=== PATIENT | male | born 1960 | race Caucasian/White ===

== ENCOUNTER 2016-05-13 09:55 | Emergency (ER) | payer MEDICARE, OTHER ==
[~2016-05-13] VITALS: Ht 177.8 cm; Wt 85.0 kg
[~2016-05-13 09:55] MED LIST: MORP20SO PO
[2016-05-13 09:56] VITALS: BP 151/75; PULSE 75; RESP 14; TEMP 98.8; O2SAT 97
[2016-05-13] MEDS ORDERED: SENN8.6T5 PO (10:12)
[2016-05-13] MEDS ORDERED: GABA300C5 PO (10:12)
[2016-05-13] MEDS ORDERED: MORP1TAB25 PO (10:12)
[2016-05-13 10:14] VITALS: BP 147/77; PULSE 80; RESP 22; O2SAT 96
[2016-05-13 11:02] LABS: BASOPHIL # 0.1 TH/MM3 (0-0.2); BASOPHIL % 0.6 % (0.0-2.0); EOSINOPHIL # 0.1 TH/MM3 (0-0.4); EOSINOPHIL % 1.4 % (0.0-4.0); HEMATOCRIT 38.5 % (39.0-51.0); HEMO FLAGS DIFF FINAL; LYMPH % 8.1 % (9.0-44.0); LYMPHOCYTE # 0.7 TH/MM3 (1.0-4.8); MEAN CELL VOLUME 83.9 FL (80.0-100.0); MEAN CORPUSCULAR HEMOGLOBIN 28.4 PG (27.0-34.0); MEAN CORPUSCULAR HGB CONC 33.8 % (32.0-36.0); MONO % 20.7 % (0.0-8.0); NEUT % 69.2 % (16.0-70.0); PLATELET COUNT 220 TH/MM3 (150-450); RED CELL DISTRIBUTION WIDTH 19.1 % (11.6-17.2); WHITE BLOOD COUNT 8.7 TH/MM3 (4.0-11.0)
[2016-05-13 11:24] LABS: ALKALINE PHOSPHATASE 75 U/L (45-117); TOTAL BILIRUBIN ADULT 0.4 MG/DL (0.2-1.0)
[2016-05-13 11:26] LABS: ALT (GPT) 31 U/L (12-78); ANION GAP 7 MEQ/L (5-15); AST (GOT) 54 U/L (15-37); BICARBONATE 29.3 MEQ/L (21.0-32.0); BLOOD UREA NITROGEN 9 MG/DL (7-18); CHLORIDE 98 MEQ/L (98-107); GLOMERULAR FILTRATION RATE 130 ML/MIN (>89); POTASSIUM 4.2 MEQ/L (3.5-5.1); SODIUM (NA) 134 MEQ/L (136-145)
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
--- NOTE | 2016-05-13 12:11 | RADRPT ---
EXAM DATE/TIME: 05/13/2016 11:10 [facility] COMPARISON: No previous studies available for comparison. INDICATIONS : Left foot swelling and redness. MEDICAL HISTORY : None. SURGICAL HISTORY : None. ENCOUNTER: Initial ACUITY: 1 week PAIN SCORE: 9/10 LOCATION: Left foot FINDINGS: Three view examination of the left foot demonstrates no diffuse soft tissue swelling. Osseous structu res are intact no acute fracture. Well-corticated ossific fragment is identified dorsal to the talar head. Small calcaneal spur at the Achilles attachment. CONCLUSION: 1. Diffuse soft tissue swelling. 2. Well-corticated ossification dorsal to the talar head may represent an accessory ossification or o ld avulsion. No acute fracture. 3. Small calcaneal spur. Wesley Willis MD on May 13, 2016 at 12:06 Board Certified Radiologist. This report was verified electronically.
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
[2016-05-13] MEDS ORDERED: [UNRECOGNIZED DRUG - OTHER] TOP (12:29)
== END 2016-05-13 13:17 | disposition home or self-care (01) ==
LOC: NEPC 09:55
DX: R60.0 Localized edema (principal); I87.8 Other specified disorders of veins; J44.9 Chronic obstructive pulmonary disease, unspecified; F17.210 Nicotine dependence, cigarettes, uncomplicated; V18.4XXA Pedal cycle driver injured in noncollision transport accident in traffic accident, initial encounter; Y93.55 Activity, bike riding; Y92.9 Unspecified place or not applicable
CPT/HCPCS: 72050; 73630; 80053; 83880; 85025; 99283

== ENCOUNTER 2016-06-29 07:50 | Inpatient (IN) | payer OTHER, MEDICARE ==
[~2016-06-29] VITALS: Ht 177.8 cm; Wt 83.5 kg
[~2016-06-29 07:50] MED LIST changes: +GABA300C5 PO; +MORP1TAB25 PO; -MORP20SO PO; +SENN8.6T5 PO; +[UNRECOGNIZED DRUG - OTHER] TOP
[2016-06-29 07:54] VITALS: BP 146/91; PULSE 86; RESP 14; TEMP 98.2; O2SAT 97
[2016-06-29 08:00] VITALS: O2SAT 97
[2016-06-29] MEDS ORDERED: SODIUM CHLORIDE 0.9% FLUSH 5 ML FLUSH IVF PRN (08:15)
[2016-06-29] MEDS ORDERED: ONDANSETRON HCL 4 MG/2 ML VIAL IV PUSH ONE (08:30)
[2016-06-29] MEDS ORDERED: NICOTINE 21 MG/24 HR PATCH TD ONE (08:30)
[2016-06-29] MEDS ORDERED: ACETAMINOPHEN 500 MG CPLT PO ONE (08:30)
--- NOTE | 2016-06-29 08:48 | PD ---
HPI Chief Complaint: Psychiatric Symptoms Time Seen by Provider: 07:55 Travel History International Travel<30 days: No Contact w/Intl Traveler<30days: No Traveled to known affect area: No History of Present Illness HPI Patient is a 55-year-old male who presents emergency Department under Ramirez act. Per Ramirez act he called his daughter and stated that he had consumed a half a gallon of bleach in an attempt to kill himself. Officers arrived and observed half empty gallon jug of bleach sitting on the desk where he was sitting. Dinner last with 2 ounces of clear liquid that smelled of bleach sitting next to him. He picked up a glass and attempted to drink it quoting "cheers". Patient states that he doesn't feel well here, slightly nauseous but denies other complaints or requests a nicotine patch and/or to go outside to smoke. Patient denies any of the above.denies any depression, suicidal ideation or homicidal ideation however Patient making jokes about how the police took his guns and denies when he "has a job to do". PFSH Past Medical History Cardiac Catheterization: Yes COPD: Yes Cerebrovascular Accident: No Diabetes: No Diminished Hearing: No Respiratory: Yes (COPD) Myocardial Infarction: No Seizures: Yes Thyroid Disease: Yes Social History Alcohol Use: Yes (1 case per week) Tobacco Use: Yes (1 PACK/DAY) Substance Use: No Allergies-Medications (Allergen,Severity, Reaction): Coded Allergies: Darvocet-N 100 (Verified Allergy, Severe, Hallucinations, 05/13/16) Reported Meds & Prescriptions Reported Meds & Active Scripts Active A-4 High Compression Mens (Elastic Bandages & Supports) 1 Mis Mis Pack TOP Reported Senna (Sennosides) 8.6 Mg Tab 8.6 Mg PO BID Morphine ER (Morphine Sulfate) 30 Mg Tab 30 Mg PO TID Gabapentin 300 Mg Cap 300 Mg PO TID Review of Systems ROS Limitations: Poor Historian Except as stated in HPI: all other systems reviewed are Neg Physical Exam Narrative GENERAL: Well-appearing middle-aged male in no acute distress SKIN: Warm and dry. HEAD: Normocephalic. EYES: Pupils equal and round. No scleral icterus. No injection or drainage. ENT: No nasal bleeding or discharge. Mucous membranes pink and moist. Posterior pharynx is clear. NECK: Supple without stridor CARDIOVASCULAR: Regular rate and rhythm. No murmur appreciated. RESPIRATORY: No accessory muscle use. Clear to auscultation. Breath sounds equal bilaterally. GASTROINTESTINAL: Abdomen soft, non-tender, nondistended. MUSCULOSKELETAL: Moves all extremity's normally NEUROLOGICAL: Awake and alert to self, knows he is in a hospital but does not know which one. Oriented to year but not date. No obvious cranial nerve deficits. Motor grossly within normal limits. Normal speech. PSYCHIATRIC: Euthymic mood. Joking. Denies any depression, suicidality, homicidal ideation. Data Data Last Documented VS Vital Signs Date Time Temp Pulse Resp B/P Pulse Ox O2 Delivery O2 Flow Rate FiO2 06/29/16 09:00 77 18 109/62 97 Room Air 06/29/16 07:54 98.2 Orders Electrocardiogram (06/29/16 08:01) Complete Blood Count With Diff (06/29/16 08:01) Comprehensive Metabolic Panel (06/29/16 08:01) Iv Access Insert/Monitor (06/29/16 08:01) Ecg Monitoring (06/29/16 08:01) Oximetry (06/29/16 08:01) Psych Screen (06/29/16 08:01) Sodium Chloride 0.9% Flush (Ns Flush) (06/29/16 08:15) Drug Screen, Random Urine (06/29/16 08:01) Alcohol (Ethanol) (06/29/16 08:01) Salicylates (Aspirin) (06/29/16 08:01) Tylenol (Acetaminophen) (06/29/16 08:01) Nicotine 21 Mg Patch.24 Hr (Habitrol 21 (06/29/16 08:30) Acetaminophen (Tylenol) (06/29/16 08:30) Ondansetron Inj (Zofran Inj) (06/29/16 08:30) Labs Laboratory Tests Test 06/29/16 08:05 White Blood Count 5.1 TH/MM3 Red Blood Count 5.12 MIL/MM3 Hemoglobin 14.8 GM/DL Hematocrit 43.5 % Mean Corpuscular Volume 84.9 FL Mean Corpuscular Hemoglobin 28.9 PG Mean Corpuscular Hemoglobin 34.0 % Concent Red Cell Distribution Width 17.2 % Platelet Count 207 TH/MM3 Mean Platelet Volume 7.9 FL Neutrophils (%) (Auto) 54.7 % Lymphocytes (%) (Auto) 32.2 % Monocytes (%) (Auto) 9.8 % Eosinophils (%) (Auto) 2.7 % Basophils (%) (Auto) 0.6 % Neutrophils # (Auto) 2.8 TH/MM3 Lymphocytes # (Auto) 1.7 TH/MM3 Monocytes # (Auto) 0.5 TH/MM3 Eosinophils # (Auto) 0.1 TH/MM3 Basophils # (Auto) 0.0 TH/MM3 CBC Comment DIFF FINAL Differential Comment Sodium Level 140 MEQ/L Potassium Level 3.6 MEQ/L Chloride Level 106 MEQ/L Carbon Dioxide Level 24.8 MEQ/L Anion Gap 9 MEQ/L Blood Urea Nitrogen 5 MG/DL Creatinine 0.56 MG/DL Estimat Glomerular Filtration 152 ML/MIN Rate Random Glucose 98 MG/DL Calcium Level 8.6 MG/DL Total Bilirubin 0.2 MG/DL Aspartate Amino Transf 13 U/L (AST/SGOT) Alanine Aminotransferase 22 U/L (ALT/SGPT) Alkaline Phosphatase 68 U/L Total Protein 7.5 GM/DL Albumin 3.7 GM/DL Salicylates Level 2.0 MG/DL Acetaminophen Level LESS THAN 2.0 MCG/ML Ethyl Alcohol Level 172 MG/DL MDM Medical Decision Making Medical Screen Exam Complete: Yes Emergency Medical Condition: Yes Medical Record Reviewed: Yes Differential Diagnosis 55-year-old male here as a Ramirez act after reported bleach ingestion and attempt to kill himself. Patient denies any of this. Differential includes suicidal ideation, bleach ingestion, alcohol intoxication, coingestion, polysubstance abuse, substance-induced mood disorder, depression, bipolar disorder, schizophrenia. Patient's ingestion was a household bleach and does not warrant further GI/EGD evaluation for esophageal burn. Narrative Course Patient placed on monitor, IV established and blood obtained. A twelve-lead EKG shows sinus rhythm without notable ST abnormalities, normal intervals. Patient given Zofran, Tylenol, nicotine patch. CBC, CMP, aspirin, Tylenol level , blood alcohol level notable for blood alcohol level CLXXII. Urine drug screen remains pending at the time of this dictation. Patient medically clear for psychiatric evaluation. Diagnosis Primary Impression: Overdose Qualified Code: T50.902A - Overdose, intentional self-harm, initial encounter Additional Impressions: Suicide attempt Alcohol intoxication Qualified Code: F10.120 - Alcohol intoxication, uncomplicated Kiana Cruz MD Jun 29, 2016 08:48
[2016-06-29 08:52] LABS: AUTOMATED NEUTROPHIL # 2.8 TH/MM3 (1.8-7.7); BASOPHIL % 0.6 % (0.0-2.0); EOSINOPHIL # 0.1 TH/MM3 (0-0.4); EOSINOPHIL % 2.7 % (0.0-4.0); HEMATOCRIT 43.5 % (39.0-51.0); HEMO FLAGS DIFF FINAL; LYMPH % 32.2 % (9.0-44.0); LYMPHOCYTE # 1.7 TH/MM3 (1.0-4.8); MEAN CELL VOLUME 84.9 FL (80.0-100.0); MEAN CORPUSCULAR HEMOGLOBIN 28.9 PG (27.0-34.0); MONO % 9.8 % (0.0-8.0); NEUT % 54.7 % (16.0-70.0); PLATELET COUNT 207 TH/MM3 (150-450); RED BLOOD COUNT 5.12 MIL/MM3 (4.50-5.90); RED CELL DISTRIBUTION WIDTH 17.2 % (11.6-17.2); WHITE BLOOD COUNT 5.1 TH/MM3 (4.0-11.0)
[2016-06-29 09:00] VITALS: BP 109/62; PULSE 77; RESP 18; O2SAT 97
[2016-06-29 09:08] LABS: ANION GAP 9 MEQ/L (5-15)
[2016-06-29 09:11] LABS: ALKALINE PHOSPHATASE 68 U/L (45-117); ALT (GPT) 22 U/L (12-78); AST (GOT) 13 U/L (15-37); BICARBONATE 24.8 MEQ/L (21.0-32.0); BLOOD UREA NITROGEN 5 MG/DL (7-18); CHLORIDE 106 MEQ/L (98-107); GLOMERULAR FILTRATION RATE 152 ML/MIN (>89); POTASSIUM 3.6 MEQ/L (3.5-5.1); SODIUM (NA) 140 MEQ/L (136-145); TOTAL BILIRUBIN ADULT 0.2 MG/DL (0.2-1.0)
[2016-06-29 09:14] LABS: ACETAMINOPHEN LESS THAN 2.0 MCG/ML (10.0-30.0)
[2016-06-29] MEDS ORDERED: LORazepam 2 MG/ML VIAL IV PUSH PRN ×4 (11:30)
[2016-06-29] MEDS ORDERED: LORazepam 2 MG/ML VIAL IV PUSH ONE (11:30)
[2016-06-29] MEDS ORDERED: FLUMAZENIL 0.5 MG/5 ML VIAL IV PUSH PRN (11:30)
[2016-06-29] MEDS ORDERED: LORazepam 2 MG TAB PO PRN (11:30)
[2016-06-29 11:42] LABS: AMPHETAMINE, URINE NEG (NEG); BARBITURATES, URINE NEG (NEG); COCAINE, URINE NEG (NEG)
[2016-06-29 14:35] VITALS: BP 104/56; PULSE 90; RESP 18; O2SAT 96
--- NOTE | 2016-06-29 14:48 | PD ---
History of Present Illness Chief Complaint: Psychiatric Symptoms Time Seen by Provider: 14:15 Travel History International Travel<30 Days: No Contact w/Intl Traveler<30days: No Known affected area: No Legal Status Legal Status: Ramirez Act Ramirez Act Signed By: Renita Vallejo History of Present Illness: History of Present Illness HPI Patient is a 55-year-old male with no psychiatric history and a history of alcohol abuse who presents to the emergency Department under Ramirez act initiated by NICIK . As per the report he called his daughter and stated to her that he had consumed a half a gallon of bleach in an attempt to end his life. Officers arrived and observed a half empty gallon jug of bleach sitting on the desk where he was sitting. There was a glass with 2 ounces of clear liquid that smelled of bleach sitting next to the jug of bleach . The patient then picked up a glass and attempted to drink it quoting "cheers". Patient was medically cleared in the ED. Ed provider reports that patietn related well and was joking with staff. EMR reviewed. No previous contact with [facility] psychiatry. Current toxicology is negative. BAL is 172. Patient is seen in J pod. Awake, alert and oriented. Appears stated age. In hospital gown with appropriate hygiene. His speech is clear and logical. There is no slurring, no pressured speech. He complains of feeling shaky from with drawal. Affect is variable. His thoughts are logical and void of any hallucinations, delusions or paranoia. He does not endorse any significant symptom of depression or anxiety. His overall demeanor is rather laid back and lighthearted as he describes his suicide gesture as well as stating " If I'm discharged I am just going to walk into traffic. " I'm just tired and don't want to do it anymore". He does not endorse any significant symptom of depression and denies any previous psychiatric history. As we discuss stressors he states that he finds himself homeless as he has been evicted from his hotel room for having verbal outbursts with other tenants and that he has been unable to find another hotel room because of [place] week. He also reports concerns because he is scheduled to receive an injection for his back tomorrow. PFSH Past Medical History Cardiac Catheterization: Yes COPD: Yes Cerebrovascular Accident: No Diabetes: No Diminished Hearing: No Respiratory: Yes (COPD) Myocardial Infarction: No Seizures: Yes Thyroid Disease: Yes Psychiatric History Psychiatric History Hx Psychiatric Treatment: None reported History of Inpatient Treatment: No Guns or firearms in home: Yes Social History Born in [place]. form his . In [place] since 2009. On disability for a back injury. Had worked as an auto customize painter. Has 2 daughters in [place]. Hx Alcohol Use: Yes (6- 12 beers per night. Reports a 7 month period of sobriety in 2016. Has been drinking for many years. ) Hx Tobacco Use: Yes (1 PACK/DAY) Hx Substance Use: No Substance Use Type: Alcohol Hx of Substance Use Treatment: No Allergies-Medications (Allergen,Severity, Reaction): Coded Allergies: Darvocet-N 100 (Verified Allergy, Severe, Hallucinations, 05/13/16) Reported Meds & Prescriptions Reported Meds & Active Scripts Active A-4 High Compression Mens (Elastic Bandages & Supports) 1 Mis Mis Pack TOP Reported Senna (Sennosides) 8.6 Mg Tab 8.6 Mg PO BID Morphine ER (Morphine Sulfate) 30 Mg Tab 30 Mg PO TID Gabapentin 300 Mg Cap 300 Mg PO TID Review of Systems Constitutional: COMPLAINS OF: Chills Endocrine: DENIES: Heat/cold intolerance, Polydipsia, Polyuria, Polyphagia Eyes: DENIES: Blurred vision, Diplopia, Eye inflammation, Eye pain, Vision loss , Photosensitivity, Double Vision Ears, nose, mouth, throat: DENIES: Tinnitus, Hearing loss, Vertigo, Nasal discharge, Oral lesions, Throat pain, Hoarseness, Ear Pain, Running Nose, Epistaxis, Sinus Pain, Toothache, Odynophagia Respiratory: DENIES: Apneas, Cough, Snoring, Wheezing, Hemoptysis, Sputum production, Shortness of breath Cardiovascular: DENIES: Chest pain, Palpitations, Syncope, Dyspnea on Exertion , PND, Lower Extremity Edema, Orthopnea, Claudication Gastrointestinal: COMPLAINS OF: Nausea Genitourinary: DENIES: Sexual dysfunction, Urinary frequency, Urinary incontinence, Urgency, Hematuria, Dysuria, Nocturia, Penile Discharge, Testicular Pain, Testicular Swelling Musculoskeletal: COMPLAINS OF: Back pain Integumentary: DENIES: Abnormal pigmentation, Nail changes, Pruritus, Rash Hematologic/lymphatic: DENIES: Bruising, Lymphadenopathy Immunologic/allergic: DENIES: Eczema, Urticaria Neurologic: DENIES: Abnormal gait, Headache, Localized weakness, Paresthesias, Seizures, Speech Problems, Tremor, Poor Balance Psychiatric: COMPLAINS OF: Suicidal Ideation (will walk in front of traffic) Exam Alert: Yes [place]: Person (ox4) Mood: Calm Affect: Euthymic Speech: Clear, Logical Eye Contact: Normal Memory Intact: Comment (no impairmetn) Hallucinations: Other (negative) Delusions: No Suicidal: Ideation (jump in front of traffic or drink bleach) Homicidal: Ideation (deneis) Insight/Judgement poor. not impaired. MDM Medical Decision Making Medical Record Reviewed: Yes Assessment/Plan 55 year old male with history of alcohol abuse who presents under a BA after he allegedly drank some bleach in a suicidal attempt. Patient with reported hx of daily alcohol use. He reports that he is being evicted and has been unable to find another motel room due to [place] Week. He continues to verbalize that when he is discharged he will either drink bleach or he will jump in traffic . At this time although there is strong suspicion that he is exaggerating his attempt and his continued suicidal ideation in order to secure prison, he will be maintained under a BA until he can be transferred to a facility that treats both substance use as well as mental health and can assist with safe detoxification . Orders Electrocardiogram (06/29/16 08:01) Complete Blood Count With Diff (06/29/16 08:01) Comprehensive Metabolic Panel (06/29/16 08:01) Iv Access Insert/Monitor (06/29/16 08:01) Ecg Monitoring (06/29/16 08:01) Oximetry (06/29/16 08:01) Psych Screen (06/29/16 08:01) Sodium Chloride 0.9% Flush (Ns Flush) (06/29/16 08:15) Drug Screen, Random Urine (06/29/16 08:01) Alcohol (Ethanol) (06/29/16 08:01) Salicylates (Aspirin) (06/29/16 08:01) Tylenol (Acetaminophen) (06/29/16 08:01) Nicotine 21 Mg Patch.24 Hr (Habitrol 21 (06/29/16 08:30) Acetaminophen (Tylenol) (06/29/16 08:30) Ondansetron Inj (Zofran Inj) (06/29/16 08:30) Diet Regular Basic (06/29/16 Lunch) Lorazepam Inj (Ativan Inj) (06/29/16 11:30) Alcohol Withdrawal Asmt-Ciwa ONCE (06/29/16 11:26) Flumazenil Inj (Romazicon Inj) (06/29/16 11:30) Lorazepam (Ativan) (06/29/16 11:30) Lorazepam Inj (Ativan Inj) (06/29/16 11:30) Lorazepam (Ativan) (06/29/16 11:30) Lorazepam Inj (Ativan Inj) (06/29/16 11:30) Lorazepam Inj (Ativan Inj) (06/29/16 11:30) Lorazepam Inj (Ativan Inj) (06/29/16 11:30) Results Vital Signs Date Time Temp Pulse Resp B/P Pulse Ox O2 Delivery O2 Flow Rate FiO2 06/29/16 14:35 90 18 104/56 96 Room Air 06/29/16 09:00 77 18 109/62 97 Room Air 06/29/16 08:00 97 Room Air 06/29/16 07:58 88 17 06/29/16 07:54 98.2 86 14 146/91 97 Laboratory Tests Test 06/29/16 06/29/16 08:05 11:25 White Blood Count 5.1 Red Blood Count 5.12 Hemoglobin 14.8 Hematocrit 43.5 Mean Corpuscular Volume 84.9 Mean Corpuscular Hemoglobin 28.9 Mean Corpuscular Hemoglobin 34.0 Concent Red Cell Distribution Width 17.2 Platelet Count 207 Mean Platelet Volume 7.9 Neutrophils (%) (Auto) 54.7 Lymphocytes (%) (Auto) 32.2 Monocytes (%) (Auto) 9.8 Eosinophils (%) (Auto) 2.7 Basophils (%) (Auto) 0.6 Neutrophils # (Auto) 2.8 Lymphocytes # (Auto) 1.7 Monocytes # (Auto) 0.5 Eosinophils # (Auto) 0.1 Basophils # (Auto) 0.0 CBC Comment DIFF FINAL Differential Comment Sodium Level 140 Potassium Level 3.6 Chloride Level 106 Carbon Dioxide Level 24.8 Anion Gap 9 Blood Urea Nitrogen 5 Creatinine 0.56 Estimat Glomerular Filtration 152 Rate Random Glucose 98 Calcium Level 8.6 Total Bilirubin 0.2 Aspartate Amino Transf 13 (AST/SGOT) Alanine Aminotransferase 22 (ALT/SGPT) Alkaline Phosphatase 68 Total Protein 7.5 Albumin 3.7 Salicylates Level 2.0 Acetaminophen Level LESS THAN 2.0 Ethyl Alcohol Level 172 Urine Opiates Screen NEG Urine Barbiturates Screen NEG Urine Amphetamines Screen NEG Urine Benzodiazepines Screen NEG Urine Cocaine Screen NEG Urine Cannabinoids Screen NEG Diagnosis Primary Impression: Alcohol intoxication Additional Impression: alcohol abuse with alcohol induced mood disorder Problem Qualifiers Primary Impression: Alcohol intoxication Qualified Code: F10.120 - Alcohol intoxication, uncomplicated [place] early Berry [facility] Jun 29, 2016 14:48
--- NOTE | 2016-06-29 14:54 | EKG ---
Date Performed: 06/29/2016 Time Performed: 07:54:51 PTAGE: 55 years EKG: Sinus rhythm MINIMAL VOLTAGE CRITERIA FOR LVH, CONSIDER NORMAL VARIANT ST ELEVATION, PROBABLY EARLY REPOLARIZATIO N BORDERLINE ECG INTERPRETATION BASED ON A DEFAULT AGE OF 40 YEARS Compared to prior tracing no signi ficant change PREVIOUS TRACING : 10/16/2011 13.51 DOCTOR: Raoul Sewell Interpretating Date/Time 06/29/2016 14:51:43
[2016-06-29 18:01] VITALS: BP 121/73; PULSE 81; RESP 16; O2SAT 96
[2016-06-29 22:47] VITALS: BP 137/81; PULSE 65; RESP 19; O2SAT 100
[2016-06-30] MEDS: LORazepam 1 MG TAB PO PRN ×5 (02:17→21:40)
[2016-06-30 02:20] VITALS: BP 137/76; PULSE 65; RESP 19; O2SAT 100
[2016-06-30 06:22] VITALS: BP 131/72; PULSE 77; RESP 18; O2SAT 97
[2016-06-30] MEDS ORDERED: MAGNESIUM HYDROXIDE SUSP 30 ML CUP PO PRN (10:30)
[2016-06-30] MEDS ORDERED: ACETAMINOPHEN 325 MG TAB PO PRN (10:30)
[2016-06-30] MEDS ORDERED: ALUMINUM/MAGNESIUM/SIMETH 30 ML CUP PO PRN (10:30)
[2016-06-30 13:00] VITALS: BP 131/83; PULSE 79; RESP 18; TEMP 98.6; O2SAT 98
[2016-06-30] MEDS ORDERED: TRAZ100T4 PO (16:18)
[2016-06-30 18:52] VITALS: BP 124/75; PULSE 79; RESP 18; TEMP 97.5; O2SAT 98
[2016-06-30] MEDS: REMOVE OLD PATCH T-DERMAL SCH (21:00)
[2016-07-01 06:05] VITALS: BP_SYST 9; PULSE 75; RESP 16; TEMP 97.6; O2SAT 96
[2016-07-01] MEDS: NICOTINE 21 MG/24 HR PATCH T-DERMAL SCH (08:21)
[2016-07-01 08:56] LABS: ANION GAP 8 MEQ/L (5-15); BICARBONATE 25.6 MEQ/L (21.0-32.0); BLOOD UREA NITROGEN 11 MG/DL (7-18); CHLORIDE 106 MEQ/L (98-107); GLOMERULAR FILTRATION RATE 135 ML/MIN (>89); HDL CHOLESTEROL 39.1 MG/DL (40.0-60.0); LDL CHOLESTEROL 81 MG/DL (0-99); POTASSIUM 4.1 MEQ/L (3.5-5.1); SODIUM (NA) 140 MEQ/L (136-145)
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
[2016-07-01 12:09] LABS: HEMOGLOBIN A1a 1.1 %; HEMOGLOBIN A1b 0.8 %; HEMOGLOBIN Ao 85.6 %; HEMOGLOBIN F 0.9 %; HEMOGLOBIN LA1C 2.2 %; HEMOGLOBIN P3 3.5 %
[2016-07-01 20:19] VITALS: BP 134/78; PULSE 79; RESP 16; TEMP 98.2; O2SAT 98
[2016-07-01] MEDS: REMOVE OLD PATCH T-DERMAL SCH (20:29)
[2016-07-02 06:08] VITALS: BP 115/73; PULSE 67; RESP 18; TEMP 98.2; O2SAT 97
[2016-07-02] MEDS: NICOTINE 21 MG/24 HR PATCH T-DERMAL SCH (08:22)
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
== END 2016-07-02 13:00 | disposition home or self-care (01) | DRG 882 ==
LOC: NEPE 07:50 → H260 06-30 10:36
PROVIDERS: ADMIT Psychiatry & Neurology Psychiatry; ATTEND Psychiatry & Neurology Psychiatry
DX: F43.25 Adjustment disorder with mixed disturbance of emotions and conduct (principal); F10.20 Alcohol dependence, uncomplicated; Z59.0 Homelessness; F17.210 Nicotine dependence, cigarettes, uncomplicated; Z76.5 Malingerer [conscious simulation]
CPT/HCPCS: 80048; 80053; 80061; 80307; 83036; 85025; 93005; 96374; 96375; J2060; J2405

== ENCOUNTER 2016-07-12 01:29 | Emergency (ER) | payer MEDICARE, OTHER ==
[~2016-07-12 01:29] MED LIST changes: +TRAZ100T4 PO
[2016-07-12 01:35] VITALS: BP 126/67; PULSE 78; RESP 16; TEMP 98.2; O2SAT 100
== END 2016-07-12 03:35 | disposition left against medical advice (07) ==
LOC: NED 03:35
DX: Z53.21 Procedure and treatment not carried out due to patient leaving prior to being seen by health care provider (principal)
CPT/HCPCS: 99281

== ENCOUNTER 2016-12-16 21:43 | Emergency (ER) | payer OTHER ==
[2016-12-16 23:30] VITALS: BP 142/73; PULSE 104; RESP 18; TEMP 98.9; O2SAT 98
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
[2016-12-17] MEDS ORDERED: LIDOCAINE HCL 1% 50 ML VIAL INFIL ONE (00:30)
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
== END 2016-12-17 00:55 | disposition home or self-care (01) ==
LOC: NEPE 21:43
DX: S01.81XA Laceration without foreign body of other part of head, initial encounter (principal); M25.521 Pain in right elbow; J44.9 Chronic obstructive pulmonary disease, unspecified; R56.9 Unspecified convulsions; E07.9 Disorder of thyroid, unspecified; F17.200 Nicotine dependence, unspecified, uncomplicated; Y09 Assault by unspecified means
CPT/HCPCS: 12011

== ENCOUNTER 2017-09-08 19:27 | Emergency (ER) | payer OTHER ==
[~2017-09-08] VITALS: Ht 177.8 cm; Wt 87.0 kg
[~2017-09-08 19:27] MED LIST changes: -SENN8.6T5 PO; -TRAZ100T4 PO; -[UNRECOGNIZED DRUG - OTHER] TOP
[2017-09-08 19:34] VITALS: BP 163/85; PULSE 93; RESP 20; TEMP 98; O2SAT 96
[2017-09-08] MEDS ORDERED: ONDANSETRON ODT 4 MG TAB PO ONE (19:45)
[2017-09-08] MEDS ORDERED: MORPHINE SULFATE 4 MG/ML INJ IV PUSH ONE (19:45)
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
[2017-09-08 20:36] LABS: AUTOMATED NEUTROPHIL # 5.8 TH/MM3 (1.8-7.7); BASOPHIL % 0.5 % (0.0-2.0); EOSINOPHIL # 0.1 TH/MM3 (0-0.4); EOSINOPHIL % 1.6 % (0.0-4.0); HEMATOCRIT 43.1 % (39.0-51.0); HEMOGLOBIN 14.5 GM/DL (13.0-17.0); LYMPH % 14.5 % (9.0-44.0); LYMPHOCYTE # 1.2 TH/MM3 (1.0-4.8); MEAN CORPUSCULAR HEMOGLOBIN 30.4 PG (27.0-34.0); MEAN CORPUSCULAR HGB CONC 33.8 % (32.0-36.0); MEAN PLATELET VOLUME 8.9 FL (7.0-11.0); MONOCYTE # 1.2 TH/MM3 (0-0.9); NEUT % 69.4 % (16.0-70.0); PLATELET COUNT 225 TH/MM3 (150-450); RED BLOOD COUNT 4.79 MIL/MM3 (4.50-5.90); RED CELL DISTRIBUTION WIDTH 15.1 % (11.6-17.2); WHITE BLOOD COUNT 8.4 TH/MM3 (4.0-11.0)
[2017-09-08 20:56] LABS: ALBUMIN 3.2 GM/DL (3.4-5.0); AST (GOT) 29 U/L (15-37); BICARBONATE 24.4 MEQ/L (21.0-32.0); BLOOD UREA NITROGEN 5 MG/DL (7-18); CALCIUM 8.7 MG/DL (8.5-10.1); CHLORIDE 102 MEQ/L (98-107); CREATININE 0.53 MG/DL (0.60-1.30); GLOMERULAR FILTRATION RATE 161 ML/MIN (>89); GLUCOSE,RANDOM 70 MG/DL (74-106); SODIUM (NA) 139 MEQ/L (136-145)
[2017-09-08 21:00] LABS: ALKALINE PHOSPHATASE 73 U/L (45-117); ALT (GPT) 30 U/L (12-78); TOTAL BILIRUBIN ADULT 0.3 MG/DL (0.2-1.0); TOTAL PROTEIN 7.2 GM/DL (6.4-8.2)
[2017-09-08] MEDS ORDERED: IOHEXOL 350 MG/ML 10 ML VIAL (for RAD DIAG) IVCONTRAST ONE (21:34)
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
[2017-09-08 22:22] VITALS: BP 144/71; PULSE 91; RESP 20; O2SAT 96
[2017-09-08] MEDS ORDERED: CEPH-460 PO (22:22)
[2017-09-08] MEDS ORDERED: BACT800T5 PO (22:22)
[2017-09-08] MEDS ORDERED: CLINDAMYCIN 600 MG/NS PREMIX 50 ML IV ONE (22:30)
== END 2017-09-08 23:24 | disposition home or self-care (01) ==
LOC: NEPC 19:27
DX: S42.001A Fracture of unspecified part of right clavicle, initial encounter for closed fracture (principal); S20.219A Contusion of unspecified front wall of thorax, initial encounter; M51.26 Other intervertebral disc displacement, lumbar region; L03.116 Cellulitis of left lower limb; L03.115 Cellulitis of right lower limb; J44.9 Chronic obstructive pulmonary disease, unspecified; F17.210 Nicotine dependence, cigarettes, uncomplicated; V18.0XXA Pedal cycle driver injured in noncollision transport accident in nontraffic accident, initial encounter; Y93.55 Activity, bike riding; Z79.891 Long term (current) use of opiate analgesic
CPT/HCPCS: 71045; 71260; 72125; 72129; 72132; 73060; 74177; 80053; 80307; 85025; 85610; 85730; 86850; 86900; 86901; 96365; 96375; 99285; J2270; L0150; Q9967

== ENCOUNTER 2018-06-11 22:33 | Observation (INO) ==
[2018-06-11] MEDS ORDERED: Sodium Chlor 0.9% Inj 500 ML IV.SIG ONE (22:46)
--- NOTE | 2018-06-11 22:55 | ED ---
HPI General Chief complaint: Chest Pain Stated complaint: Caridac Time Seen by Provider: 06/11/18 22:35 Source: patient Mode of arrival: EMS Limitations: no limitations History of Present Illness HPI narrative: The patient is a 57 year old male who presents to the [facility] emergency department with a history of central chest pain and shortness of breath that began prior to arrival. The patient reports that he was walking to a local convenient store when it began. He reports that the chest pressure has been constant since the onset although worsened with attempting to walk, improved with resting. Ambulance services were called prior to arrival and the patient was given aspirin 324 mg p.o. x1, 2 sublingual nitroglycerin. The patient reports that many years ago he was told that he had a mild heart attack , however subsequently he underwent cardiac catheterization that was reportedly unremarkable 20 years ago. He denies having any cardiac stenting. He denies any prior history of hypertension or hyperlipidemia. He denies any prior history of diabetes mellitus. He denies having any prior history of DVT or PE. He denies having any lower extremity edema, calf pain, or erythema. He does however report that he has been sick over the last week with cough, congestion, nausea, vomiting, and diarrhea. He reports that this began 6 days ago. He reports that he has been mainly lying in bed with the illness. He reports that he has had nausea and vomiting approximately 8-10 times per day, diarrhea approximately 2 times per day over the last few days. The patient reports a prior history of COPD. He reports that he does continue to smoke a half a pack of cigarettes daily. The patient reports that his cough is productive of a clear sputum. He reports that his emesis has consisted of mucus. The patient reports having a fever with a T-max of 103 at home. On review of systems otherwise, the patient denies having any neck pain or stiffness, chest pain, shortness of breath, abdominal pain, vomiting, diarrhea, urinary symptoms, or neurologic symptoms. Related Data Home Medications Medication Instructions Recorded Confirmed morphine 30 mg PO Q6H 06/11/18 06/11/18 Previous Rx's Medication Instructions Recorded metoclopramide HCl [Reglan] 10 mg PO Q6H PRN #30 tab 06/12/18 Allergies Allergy/AdvReac Type Severity Reaction Status Date / Time No Known Allergies Allergy Verified 06/11/18 22:46 Review of Systems ROS: all other systems reviewed are negative [facility] Medical History Medical History Alcohol abuse (Acute) Mood disorder (Acute) Suicide attempt (Acute) Tobacco use (Acute) Surgical History Surgical History History of back surgery (Acute) Social History Social History Substance History: No History of Abuse Second Hand Smoke Exposure: No Smoking Status: Current every day smoker Tobacco Type: Cigarettes Packs Per Day: 1 Cigarettes Per Day: 20.0 Years Smoked: 40 Pack-Years: 40.00 How Often Do You Have a Drink Containing Alcohol: 2 to 3 times a week Recent Travel in [facility] within the Last 8 Weeks: No Recent Out of Country Travel within the Last 8 Weeks: No Immunization History Tetanus Immunization: Unsure Exam Const General: cooperative, no acute distress and well developed Nutritional Appearance: well nourished Orientation: alert, awake and oriented x3 HENMT Head: normocephalic and atraumatic Nose: no nasal discharge and no epistaxis Mouth: moist mucous membranes Eyes Sclera: normal sclerae Pupils: PERRL Neck Neck: no meningeal signs, trachea midline and no JVD Resp Effort & Inspection: no use of accessory muscles Auscultation: clear to auscultation bilaterally Cardio Rate: regular rate Rhythm: regular rhythm Heart Sounds: no murmurs GI Inspection: non-distended Palpation: soft, no hepatosplenomegaly and nontender Back/Spine/Pelvis Back: no CVA tenderness Cervical Spine: No cervical spinal tenderness Thoracic/Lumbar Spine: No thoracic spinal tenderness and No lumbar spinal tenderness Skin General: dry skin (warm) Neuro General: alert, awake, oriented x3 and other (Grossly nonfocal) Speech: speech normal Motor: no movement abnormalities noted Extrem General: normal to inspection, no calf tenderness, no clubbing, no cyanosis and no edema Psych Mood: congruent mood Affect: normal affect Judgment: judgment good Course Initial Documented Vital Signs Temperature 98.7 F 06/11/18 22:35 Pulse Rate 77 06/11/18 22:35 Respiratory Rate 20 06/11/18 22:35 Blood Pressure 211/114 H 06/11/18 22:35 Pulse Oximetry 97 06/11/18 22:35 Last Documented Vital Signs Temperature 97.5 F L 06/12/18 04:09 Pulse Rate 64 06/12/18 04:09 Respiratory Rate 20 06/12/18 04:09 Blood Pressure 137/79 06/12/18 04:09 Pulse Oximetry 97 06/12/18 04:09 Medical Decision Making MDM Narrative Medical decision making narrative: During the course of the patient's emergency department visit, the patient's history, examination, and differential diagnosis were reviewed with the patient. The patient was placed on a potline monitor with oximetry and frequent blood pressure monitoring. The patient had IV access obtained and blood work sent for analysis. The patient was initially provided normal saline of 500 mL bolus x1, nitroglycerin sublingual x1, nitroglycerin 1 inch to the chest wall. The patient was provided aspirin prior to arrival by ambulance services The patient's diagnostic studies are remarkable for a white count of 5.8, hemoglobin 15.7, platelets 189 was 17.8 monocytes, PT PTT within normal limits, d-dimer 0.19 decreasing the likelihood of pulmonary embolism in this patient with no other significant risk factors, chemistries remarkable for an AST of 14 , initial set of cardiac enzymes are within normal limits, BNP is 8, lipase 132. The patient's chest x-ray showed no evidence of acute cardiopulmonary disease . The patient will be admitted to the chest pain center for rule out serial cardiac enzyme protocol followed by consideration of stress testing with the ignition mechanic. The patient's results were discussed with the patient, including the plan of care. I explained that further testing and/ or monitoring is indicated based on the patient's history, examination, and/ or laboratory findings. Therefore, I recommended admission for additional evaluation. The patient expressed understanding and was agreeable with this plan. The patient was admitted to the hospital in stable condition and sent to a bed under the care of the [facility]. Medical Screen Exam Complete: Yes Emergency Medical Condition: Yes Differential Diagnosis Differential Diagnosis: Acute coronary syndrome, versus COPD exacerbation, versus pulmonary embolism, versus pneumothorax, versus congestive heart failure Medical Records Medical records reviewed: Yes I reviewed the patient's medical records. Lab Data Lab results reviewed: Yes I reviewed the patient's lab results. Result diagrams: 06/11/18 22:50 06/11/18 22:50 Lab Results 06/11/18 06/11/18 06/11/18 Range/Units 22:50 22:50 22:50 WBC 5.8 (4.0-11.0) th/mm3 RBC 4.81 (4.50-5.90) mil/mm3 Hgb 15.7 (13.0-17.0) gm/dL Hct 44.5 (39.0-51.0) % MCV 92.6 (80.0-100.0) fL MCH 32.6 (27.0-34.0) pg MCHC 35.2 (32.0-36.0) % RDW 14.9 (11.6-17.2) % Plt Count 189 (150-450) th/mm3 MPV 8.6 (7.0-11.0) fL Neut % (Auto) 57.0 (16.0-70.0) % Lymph % (Auto) 22.0 (9.0-44.0) % [place] % (Auto) 17.8 H (0.0-8.0) % Eos % (Auto) 2.6 (0.0-4.0) % Baso % (Auto) 0.6 (0.0-2.0) % Neut # (Auto) 3.3 (1.8-7.7) th/mm3 Lymph # (Auto) 1.3 (1.0-4.8) th/mm3 [place] # (Auto) 1.0 H (0.0-0.9) th/mm3 Eos # (Auto) 0.2 (0.0-0.4) th/mm3 Baso # (Auto) 0.0 (0.0-0.2) th/mm3 WBC Differential . Differential Comment Auto diff final PT 10.4 (9.8-11.6) sec INR 1.0 Ratio APTT 27.1 (23.4-31.7) sec D-Dimer Quant (PE/DVT) 0.19 (0.00-0.50) mg/L FEU Sodium 138 (136-145) meq/L Potassium 3.7 (3.5-5.1) meq/L Chloride 103 (98-107) meq/L Carbon Dioxide 26.7 (21.0-32.0) meq/L Anion Gap 8 (5-15) meq/L BUN 7 (7-18) mg/dL Creatinine 0.62 (0.60-1.30) mg/dL Estimated GFR Greater than 89 (>89) mL/min Random Glucose 101 (74-106) mg/dL Calcium 9.2 (8.5-10.1) mg/dL Magnesium 2.0 (1.5-2.5) mg/dL Total Bilirubin 0.4 (0.2-1.0) mg/dL AST 14 L (15-37) U/L ALT 15 (12-78) U/L Alkaline Phosphatase 58 (45-117) U/L Total Creatine Kinase 77 (39-308) U/L Troponin I Less than 0.02 L (0.02-0.05) ng/mL B-Natriuretic Peptide (0-100) pg/mL Total Protein 7.4 (6.4-8.2) g/dL Albumin 3.8 (3.4-5.0) g/dL Lipase 132 (73-393) U/L 06/11/18 06/12/18 06/12/18 Range/Units 22:50 01:37 04:55 WBC (4.0-11.0) th/mm3 RBC (4.50-5.90) mil/mm3 Hgb (13.0-17.0) gm/dL Hct (39.0-51.0) % MCV (80.0-100.0) fL MCH (27.0-34.0) pg MCHC (32.0-36.0) % RDW (11.6-17.2) % Plt Count (150-450) th/mm3 MPV (7.0-11.0) fL Neut % (Auto) (16.0-70.0) % Lymph % (Auto) (9.0-44.0) % [place] % (Auto) (0.0-8.0) % Eos % (Auto) (0.0-4.0) % Baso % (Auto) (0.0-2.0) % Neut # (Auto) (1.8-7.7) th/mm3 Lymph # (Auto) (1.0-4.8) th/mm3 [place] # (Auto) (0.0-0.9) th/mm3 Eos # (Auto) (0.0-0.4) th/mm3 Baso # (Auto) (0.0-0.2) th/mm3 WBC Differential Differential Comment PT (9.8-11.6) sec INR Ratio APTT (23.4-31.7) sec D-Dimer Quant (PE/DVT) (0.00-0.50) mg/L FEU Sodium (136-145) meq/L Potassium (3.5-5.1) meq/L Chloride (98-107) meq/L Carbon Dioxide (21.0-32.0) meq/L Anion Gap (5-15) meq/L BUN (7-18) mg/dL Creatinine (0.60-1.30) mg/dL Estimated GFR (>89) mL/min Random Glucose (74-106) mg/dL Calcium (8.5-10.1) mg/dL Magnesium (1.5-2.5) mg/dL Total Bilirubin (0.2-1.0) mg/dL AST (15-37) U/L ALT (12-78) U/L Alkaline Phosphatase (45-117) U/L Total Creatine Kinase 68 70 (39-308) U/L Troponin I Less than 0.02 L Less than 0.02 L (0.02-0.05) ng/mL B-Natriuretic Peptide 8 (0-100) pg/mL Total Protein (6.4-8.2) g/dL Albumin (3.4-5.0) g/dL Lipase (73-393) U/L Imaging Data Radiologist's impression: Chest X-Ray 06/11/18 22:46 CONCLUSION: No acute cardiopulmonary disease Myocardial Perfusion Scan Nuc Med 06/12/18 00:00 CONCLUSION: No significant areas of ischemia are seen. ECG Data Interpretation: The patient had an EKG done on arrival. The patient's EKG revealed a sinus rhythm with a sinus arrhythmia, heart rate of 76, QRS duration 98 ms, QTC [address] segment elevation. Discharge Plan Discharge Disposition Patient Disposition: ED Admit(ED Internal Use Only) Discharge Condition Condition: Stable Discharge Order Discharge Orders: Discharge Order (Routine); Ordered 06/12/18 Ordered By: Diane Velazquez ED Use Only Admit Order (Routine); Ordered 06/12/18 Ordered By: Fanny Christine Discharge Details Anticipated Discharge Date: 06/12/18 Diagnosis: Chest pain, rule out acute myocardial infarction Physicians Team ED Provider: Fanny Christine Primary Care Provider: Danna Villatoro Attending Provider: Puneet Parks Other Providers: Rosita,Humancata Status ED Status: Left Department Discharge Information Discharge Date/Time: 06/12/18 03:01
--- NOTE | 2018-06-11 22:58 | XR ---
EXAM DATE: 06/11/2018 10:56 PM EST AGE/SEX: 57 years / Male INDICATIONS: Chest pain. CLINICAL DATA: This is the patient's subsequent encounter. Patient reports that signs and symptoms h ave been present for 1 day and indicates a pain score of 5/10. MEDICAL/SURGICAL HISTORY: None. None. COMPARISON: POI, XR CHEST PA AND LAT, 03/08/2018. . FINDINGS: A single AP view of the chest demonstrates the lungs to be symmetrically aerated without evidence of mass, infiltrate or effusion. The cardiomediastinal contours are unremarkable. Osseous structures a re intact. Old right clavicle fracture. CONCLUSION: No acute cardiopulmonary disease Electronically signed by: Tip Crawford MD Board Certified Radiologist 06/11/2018 10:57 PM EST
[2018-06-11 23:02] LABS: Baso % (Auto) 0.6 % (0.0-2.0); Eos # (Auto) 0.2 th/mm3 (0.0-0.4); Eos % (Auto) 2.6 % (0.0-4.0); Hematocrit 44.5 % (39.0-51.0); Hemoglobin 15.7 gm/dL (13.0-17.0); Lymph # (Auto) 1.3 th/mm3 (1.0-4.8); Mean Corpuscular HGB Conc 35.2 % (32.0-36.0); Mean Corpuscular Hemoglobin 32.6 pg (27.0-34.0); Mean Corpuscular Volume 92.6 fL (80.0-100.0); Mean Platelet Volume 8.6 fL (7.0-11.0); Mono % (Auto) 17.8 % (0.0-8.0); Neut # (Auto) 3.3 th/mm3 (1.8-7.7); Platelet Count 189 th/mm3 (150-450); Red Blood Count 4.81 mil/mm3 (4.50-5.90); Red Cell Distribution Width 14.9 % (11.6-17.2); White Blood Count 5.8 th/mm3 (4.0-11.0)
[2018-06-11 23:15] LABS: Activated Partial Thrombo Time 27.1 sec (23.4-31.7); D-Dimer 0.19 mg/L FEU (0.00-0.50); Prothrombin Time 10.4 sec (9.8-11.6)
[2018-06-11 23:16] LABS: Albumin 3.8 g/dL (3.4-5.0); Anion Gap 8 meq/L (5-15); Aspartate Aminotransferase 14 U/L (15-37); Blood Urea Nitrogen 7 mg/dL (7-18); Calcium 9.2 mg/dL (8.5-10.1); Carbon Dioxide 26.7 meq/L (21.0-32.0); Chloride 103 meq/L (98-107); Glomerular Filtration Rate Greater Than 89 mL/min (>89); Glucose,Random 101 mg/dL (74-106); Lipase 132 U/L (73-393); Potassium 3.7 meq/L (3.5-5.1); Sodium 138 meq/L (136-145)
[2018-06-11 23:17] LABS: Alanine Aminotransferase 15 U/L (12-78)
[2018-06-11 23:21] LABS: Alkaline Phosphatase 58 U/L (45-117); Total Protein 7.4 g/dL (6.4-8.2)
[2018-06-11 23:23] LABS: Creatine Kinase 77 U/L (39-308)
[2018-06-12] MEDS ORDERED: Acetaminophen 500 MG Tablet PO PRN (01:05)
[2018-06-12 02:09] LABS: Creatine Kinase 68 U/L (39-308)
[2018-06-12 04:11] VITALS: BP 137/79; PULSE 64; RESP 20; TEMP 97.5; O2SAT 97
[2018-06-12 05:39] LABS: Creatine Kinase 70 U/L (39-308)
[2018-06-12] MEDS ORDERED: Metoclopramide 10 MG Tablet PO ONE (07:30)
[2018-06-12] MEDS ORDERED: Regadenoson Inj 0.4 MG/5 ML Syringe IV.PUSH ONE (07:30)
--- NOTE | 2018-06-12 07:31 | P.HPCA ---
History of Present Illness Primary Care Physician: Danna Villatoro MD Chief Complaint: Chest pain History of Present Illness: 57 year old male with history of multiple back surgeries and current smoker presents to ER for further evaluation of exertional chest pressure. Onset last evening while walking to local store. Store located 2 blocks from his home and reports after walking 1 block developed substernal chest pressure/tightness. Severe in severity. No radiation. Associated symptoms included dyspnea and dizziness. No diaphoresis. Duration 2 hours. Precipitating factors related to exertion. Reports this past week developing substernal chest pressure after walking a flight of stairs to his apartment. Pressure quickly resolves with rest. Reports recent GI illness over the last week including nausea, vomiting, diarrhea. Last evening one the first time he felt well enough to leave his house. States he being on the mends with GI issue, nausea, vomiting, and diarrhea all resolved. Appetite returning. Continues to smoke 1 pack/day. Reports history of COPD and chronic hiccups (since 2004). Past cardiac testing Remote cardiac catheterization 20 years ago, reported to be normal. Cardiac catheterization completed after reported abnormal cardiac testing. No remote cardiac testing. Social history No known hypertension, hyperlipidemia, CAD, or diabetes. Current 1 pack/daily. Endorses alcohol use. Denies recreational drug use. - Diagnosis (1) Chest pain of uncertain etiology (2) Tobacco use (3) Chronic hiccoughs Review of Systems All other systems reviewed negative except as stated in HPI PMFSH - History History Provided By: Patient, Public Safety Police / EMT - Medical History Medical History: Medical History (Last Reviewed 06/12/18 @ 08:24 by MANNY Boggs) Alcohol abuse Mood disorder Suicide attempt Tobacco use - Surgical History Surgical History: Surgical History (Last Updated 06/12/18 @ 08:24 by AMNNY Boggs) History of back surgery - Social History I have reviewed the patient's Social History: Yes - Tobacco History Second Hand Smoke Exposure: No Tobacco Use In Past 30 Days: Yes Smoking Status: Current every day smoker Tobacco Type: Cigarettes Packs Per Day: 1 Years Smoked: 40 - Alcohol History How Often Do You Have a Drink Containing Alcohol: 2 to 3 times a week - Substance Use History Substance History: No History of Abuse - Travel History Recent Travel in the [place] Within the Last 8 Weeks: No Recent Travel Out of the Country Within the Last 8 Weeks: No - Immunization History Tetanus Immunization: Unsure Medications and Allergies Active Medications: Active Medications Acetaminophen (Tylenol) 500 mg PO Q4H PRN PRN Reason: HEADACHE Sodium Chloride (Ns Flush) 2 ml IV.FLUSH UNSCH PRN PRN Reason: FLUSH AFTER USING IV ACCESS Sodium Chloride (Ns Flush) 2 ml IV.FLUSH BID EDDIE Sodium Chloride (Ns Flush) 2 ml IV.FLUSH PRN PRN PRN Reason: FLUSH AFTER USING IV ACCESS Allergies Allergy/AdvReac Type Severity Reaction Status Date / Time No Known Allergies Allergy Verified 06/11/18 22:46 Home Medications Medication Instructions Recorded Confirmed Type morphine 30 mg PO Q6H 06/11/18 06/11/18 History Exam Vital signs: Vital Signs 06/11/18 22:35 06/11/18 22:54 06/11/18 22:55 Temperature 98.7 F Pulse Rate 77 67 67 Respiratory Rate 20 17 Blood Pressure 211/114 H 153/78 H Pulse Oximetry 97 99 98 06/12/18 01:04 06/12/18 02:47 06/12/18 04:09 Temperature 97.5 F L Pulse Rate 54 L 59 L 64 Respiratory Rate 18 16 20 Blood Pressure 156/72 H 122/59 L 137/79 Pulse Oximetry 98 98 97 Intake & Output 06/11/18 06/12/18 06/12/18 18:59 06:59 18:59 Intake Total 500 / 500 Balance 500 / 500 Weight 83.915 kg Intake: IV 500 / 500 NS Inj 500 ML @ Wide Open IV. 500 / 500 SIG ONCE ONE Rx#:[id number] Other: # Voids 4 Date of Last Bowel Movement 06/11/18 Narrative: GENERAL: Alert WN, WD, NAD, pleasant, male HEAD: NC, AT NECK: Supple, no masses, trachea midline CV: RRR, without murmur, rub, gallop. Chest wall nontender to palpation RESP: Diminished lungs throughout bilateral, no crackles, wheeze, or rhonchi, symmetrical chest rise, nonlabored, able to speak in full sentences ABD: Soft, NT, ND, no masses, positive bowel tones EXT: Pulses +2x4, no dependent edema MS: Normal tone x4 extremities, nontender, no obvious deformities, full range of motion NEURO: Motor strength 5/5 PSYCH: A+O x3, pleasant affect, appropriate speech, mood, insight and judgment SKIN: Normal turgor, normal texture, no lesions, no rashes Results 06/11/18 22:50 06/11/18 22:50 Cardiac Enzymes 06/11/18 06/11/18 06/12/18 Range/Units 22:50 22:50 01:37 AST 14 L (15-37) U/L Troponin I Less than 0.02 L Less than 0.02 L (0.02-0.05) ng/mL B-Natriuretic Peptide 8 (0-100) pg/mL 06/12/18 Range/Units 04:55 AST (15-37) U/L Troponin I Less than 0.02 L (0.02-0.05) ng/mL B-Natriuretic Peptide (0-100) pg/mL Coagulation 06/11/18 06/11/18 Range/Units 22:50 22:50 PT 10.4 (9.8-11.6) sec APTT 27.1 (23.4-31.7) sec B-Natriuretic Peptide 8 (0-100) pg/mL CBC 06/11/18 Range/Units 22:50 WBC 5.8 (4.0-11.0) th/mm3 RBC 4.81 (4.50-5.90) mil/mm3 Hgb 15.7 (13.0-17.0) gm/dL Hct 44.5 (39.0-51.0) % Plt Count 189 (150-450) th/mm3 Neut # (Auto) 3.3 (1.8-7.7) th/mm3 Lymph # (Auto) 1.3 (1.0-4.8) th/mm3 [place] # (Auto) 1.0 H (0.0-0.9) th/mm3 Eos # (Auto) 0.2 (0.0-0.4) th/mm3 Baso # (Auto) 0.0 (0.0-0.2) th/mm3 Comprehensive Metabolic Panel 06/11/18 Range/Units 22:50 Sodium 138 (136-145) meq/L Potassium 3.7 (3.5-5.1) meq/L Chloride 103 (98-107) meq/L Carbon Dioxide 26.7 (21.0-32.0) meq/L BUN 7 (7-18) mg/dL Creatinine 0.62 (0.60-1.30) mg/dL Calcium 9.2 (8.5-10.1) mg/dL AST 14 L (15-37) U/L ALT 15 (12-78) U/L Alkaline Phosphatase 58 (45-117) U/L Total Protein 7.4 (6.4-8.2) g/dL Albumin 3.8 (3.4-5.0) g/dL Intake and Output 06/11/18 06/12/18 06/12/18 22:59 06:59 14:59 Intake Total 500 / 500 Balance 500 / 500 Intake: IV 500 / 500 NS Inj 500 ML @ Wide Open IV. 500 / 500 SIG ONCE ONE Rx#:[id number] Other: # Voids 4 Date of Last Bowel Movement 06/11/18 Weight 83.915 kg - Imaging and Cardiology Imaging: Impressions Chest X-Ray 06/11/18 22:46 CONCLUSION: No acute cardiopulmonary disease EKG interpretations - EKG EKG results cardiology: sinus rhythm, normal axis, normal QRS, normal ST/T Caprini VTE Risk Assessment Caprini VTE Risk Assessment: No/Low Risk (score <= 1) Caprini Risk Assessment Model: Point Value = 1 Point Value = 2 Point Value = 3 Point Value = 5 Age 41-60 Minor surgery BMI > 25 kg/m2 Swollen legs Varicose veins or History of unexplained or recurrent spontaneous Oral contraceptives or hormone replacement Sepsis (< 1 month) Serious lung disease, including pneumonia (< 1 month) Abnormal pulmonary function Acute myocardial infarction Congestive heart failure (< 1 month) History of inflammatory bowel disease Medical patient at bed rest Age 61-74 Arthroscopic surgery Major open surgery (> 45 min) Laparoscopic surgery (> 45 min) Malignancy Confined to bed (> 72 hours) Immobilizing plaster cast Central venous access Age >= 75 History of VTE Family history of VTE Factor V Leiden Prothrombin [id number] Lupus anticoagulant Anticardiolipin antibodies Elevated serum homocysteine Heparin-induced thrombocytopenia Other congenital or acquired thrombophilia Stroke (< 1 month) Elective arthroplasty Hip, pelvis, or leg fracture Acute spinal cord injury (< 1 month) Prophylaxis Regimen: Total Risk Factor Score Risk Level Prophylaxis Regimen 0-1 Low Early ambulation 2 Moderate Order ONE of the following: *Sequential Compression Device (SCD) *Heparin 5000 units SQ BID 3-4 Higher Order ONE of the following medications: *Heparin 5000 units SQ TID *Enoxaparin/Lovenox 40 mg SQ daily (WT < 150 kg, CrCl > 30 mL/min) *Enoxaparin/Lovenox 30 mg SQ daily (WT < 150 kg, CrCl > 10-29 mL/min) *Enoxaparin/Lovenox 30 mg SQ BID (WT < 150 kg, CrCl > 30 mL/min) AND/OR *Sequential Compression Device (SCD) 5 or more Highest Order ONE of the following medications: *Heparin 5000 units SQ TID (Preferred with Epidurals) *Enoxaparin/Lovenox 40 mg SQ daily (WT < 150 kg, CrCl > 30 mL/min) *Enoxaparin/Lovenox 30 mg SQ daily (WT < 150 kg, CrCl > 10-29 mL/min) *Enoxaparin/Lovenox 30 mg SQ BID (WT < 150 kg, CrCl > 30 mL/min) AND *Sequential Compression Device (SCD) Assessment and Plan - Assessment (1) Chest pain of uncertain etiology Code(s): R07.89 - Other chest pain Status: Acute Plan: Admitted chest pain center. Monitor on telemetry overnight. ACS ruled out 3 sets of EKGs and cardiac enzymes. Seen and evaluated by Dr. Puneet Parks. Proceed with Lexiscan this morning. If unremarkable, plan is to discharge home with follow-up with primary care provider. Patient agreeable to plan of care and verbalized understanding. (2) Tobacco use Code(s): Z72.0 - Tobacco use Status: Chronic Plan: Strongly encouraged and stressed the importance of tobacco cessation. Instructed to quit smoking. Tobacco Free [place] program information will be provided upon discharge instructions. (3) Chronic hiccoughs Code(s): R06.6 - Hiccough Status: Chronic Plan: Reglan 10 mg p.o. x1 dose now. Hiccups been chronic since 2004, reporting being tried on 3 different medication and has seen multiple physicians regarding chronic hiccups. H&P: Quality - VTE Deep Vein Thrombosis/Pulmonary Embolism Present on Admission: No
--- NOTE | 2018-06-12 09:39 | NM ---
EXAM DATE: 06/12/2018 9:28 AM EST AGE/SEX: 57 years / Male INDICATIONS:Angina. . Substernal chest pain. CLINICAL DATA: This is the patient's initial encounter. Patient reports that signs and symptoms have been present for 1 day and indicates a pain score of 3/10. MEDICAL/SURGICAL HISTORY: None. Coronary artery stent. Back surgery. COMPARISON: No prior exams available for comparison. DOSE: 8.5 mCi Tc 99m Myoview at rest 25.8 mCi [id number] at stress 0.4 mg Lexiscan STRESS SYMPTOMS: Chest tightness and head pressure. EJECTION FRACTION: 61 % TECHNIQUE: The patient underwent pharmacologic stress with infusion of prescribed dose. Continuous ECG tracing was monitored during stress. Gated SPECT imaging was performed after stress and conventi onal SPECT imaging was performed at rest. The examination was performed on a SPECT/CT scanner, both attenuation and non-corrected datasets were reviewed. FINDINGS: Distribution: The maximum perfused segment at stress is in the lateral wall. Perfusion Study: The pattern of perfusion at stress is within normal limits. Gated Study: There are intact wall motion and wall thickening without hypokinetic or dyskinetic segm ents. The ejection fraction is calculated at 61%. RISK CATEGORY: Low (<1% Annual Mortality Rate) CONCLUSION: No significant areas of ischemia are seen. Electronically signed by: Levi Bryant MD Board Certified Radiologist 06/12/2018 9:37 AM EST
--- NOTE | 2018-06-12 14:47 | ECG ---
Date Performed: 06/12/2018 Time Performed: 01:39:08 PTAGE: 57 years EKG: SINUS BRADYCARDIA MINIMAL VOLTAGE CRITERIA FOR LVH, CONSIDER NORMAL VARIANT EARLY REPOLARIZ ATION BORDERLINE ECG PREVIOUS TRACING : 06/29/2016 07.54 Since previous tracing, no significant change noted DOCTOR: Puneet Parks Interpretating Date/Time 06/12/2018 14:45:59
--- NOTE | 2018-06-12 14:47 | ECG ---
Date Performed: 06/12/2018 Time Performed: 05:54:11 PTAGE: 57 years EKG: Sinus rhythm ST ELEVATION, PROBABLY EARLY REPOLARIZATION BORDERLINE ECG PREVIOUS TRACING : 06/12/2018 01.39 Since previous tracing, no significant change noted DOCTOR: Puneet Parks Interpretating Date/Time 06/12/2018 14:45:46
--- NOTE | 2018-06-12 14:47 | ECG ---
Date Performed: 06/11/2018 Time Performed: 22:38:07 PTAGE: 57 years EKG: Sinus rhythm WITH SINUS ARRHYTHMIA POSSIBLE LEFT ATRIAL ENLARGEMENT BORDERLINE ECG INTERPRETATION BASED ON A DEFA ULT AGE OF 40 YEARS PREVIOUS TRACING : 06/29/2016 07.54 Since previous tracing, no significant change noted DOCTOR: Puneet Parks Interpretating Date/Time 06/12/2018 14:46:25
--- NOTE | 2018-06-12 14:48 | TR ---
Date Performed: 06/12/2018 Time Performed: 08:40:26 DOCTOR: Puneet Parks DRUG LIST: CLINICAL HISTORY: REASON FOR TEST: REASON FOR ENDING: OBSERVATION: CONCLUSION: COMMENTS: Lexiscan stress test was performed under standard four minute protocol. Radionuclide was injected one minute prior to ending the test. No electrocardiographic abormalities were present t o suggest ischemia. Nuclear imaging and interpretation are pending.
== END 2018-06-12 11:23 | disposition home or self-care (01) ==
LOC: NEDA 22:33 → NEPE 22:33 → NEPGCP 06-12 02:54
PROVIDERS: ADMIT Internal Medicine Cardiovascular Disease; ATTEND Internal Medicine Cardiovascular Disease
DX: I20.9 Angina pectoris, unspecified; F10.10 Alcohol abuse, uncomplicated; R06.02 Shortness of breath; F17.210 Nicotine dependence, cigarettes, uncomplicated; R06.6 Hiccough; J44.9 Chronic obstructive pulmonary disease, unspecified; R07.89 Other chest pain
CPT/HCPCS: 71010; 71045; 78452; 80053; 82550; 83520; 83690; 83735; 83880; 84484; 85025; 85379; 85610; 85730; 90761; 90774; 90784; 93005; 93017; 96361; 96374; 99285; A9502; C8952; G0378; J2405; J2785; J7040; Q9969